=== PATIENT | female | born 1975 | race Hispanic/Latino ===

== ENCOUNTER 2016-06-25 13:14 | Emergency (ER) | payer SELFPAY ==
[~2016-06-25] VITALS: Ht 152.4 cm; Wt 100.0 kg
[~2016-06-25 13:14] MED LIST: ADVIL200 MG PO; LORTAB 10 OR
[2016-06-25] MEDS ORDERED: LORTAB 5-325 MG1 TAB PO (14:15)
[2016-06-25 14:29] VITALS: BP 137/44
== END 2016-06-25 14:29 | disposition home or self-care (01) | DRG 607 ==
LOC: ED 13:14
DX: L25.3 Unspecified contact dermatitis due to other chemical products (principal)

== ENCOUNTER 2019-08-07 15:53 | Emergency (ER) | payer SELFPAY ==
[~2019-08-07] VITALS: Ht 152.4 cm; Wt 92.7 kg
[~2019-08-07 15:53] MED LIST changes: +FLEXERIL5 M1 PO; +LORTAB 5-325 MG1 TAB PO; +PERCOGESI1 PO
[2019-08-07 16:46] LABS: HEMATOCRIT 32.9 % (37.0-47.0); HEMOGLOBIN 9.5 g/dl (12.0-16.0); IMMATURE GRANULOCYTES 0.4 % (0.0-5.0); MEAN CORPUSCULAR HGB CONC 28.9 g/dL CAL (32.0-36.0); NEUT# 2.87 thou/uL (2.00-7.15); RED BLOOD COUNT 4.75 mill/uL (4.20-5.60); RED CELL DISTRI WIDTH 18.7 % (11.5-15.5)
[2019-08-07 17:00] LABS: MEAN CELL VOLUME 69.3 fL CALC (80.0-100.0)
[2019-08-07 17:14] LABS: ALBUMIN 4.1 g/dL (3.2-5.0); ALKALINE PHOSPHATASE 153 u/l (38-126); ANION GAP 13 (6-22 (CALC)); BILIRUBIN, TOTAL 0.3 mg/dL (0.0-1.4); BUN 7 mg/dL (7-17); BUN/CREATININE RATIO 11 (12-20 (CALC)); CARBON DIOXIDE 23 mmol/l (22-30); CHLORIDE 101 mmol/l (95-108); CREATININE 0.6 mg/dL (0.5-1.0); GFR > 60 ML/MIN (>=60 (CALC)); GFR FOR AFR.AMER. > 60 ML/MIN (>=60 (CALC)); LIPASE 87 u/l (23-300); POTASSIUM 3.3 mmol/l (3.5-5.1); SGOT/AST 85 u/l (14-36); SODIUM 134 mmol/l (137-146)
[2019-08-07 17:18] LABS: HCG SERUM/URINE (NEG/POS) NEGATIVE (NEGATIVE)
[2019-08-07 18:17] LABS: C-REACTIVE PROTEIN 3.8 mg/dL (0-0.9)
[2019-08-07 18:50] VITALS: BP 142/73
== END 2019-08-07 18:50 | disposition home or self-care (01) | DRG 179 ==
LOC: ED 15:53
PROVIDERS: Family Medicine
DX: U07.1 COVID-19 (principal)

== ENCOUNTER 2020-06-28 21:48 | Emergency (ER) | payer SELFPAY ==
[~2020-06-28] VITALS: Ht 152.4 cm; Wt 93.0 kg
[2020-06-28] MEDS ORDERED: METFORMIN HCL500 M2 PO (22:39)
[2020-06-28 23:00] LABS: IMMATURE GRANULOCYTES 0.4 % (0.0-5.0); MEAN CORPUSCULAR HGB CONC 32.2 g/dL CAL (32.0-36.0); NEUT# 4.14 thou/uL (2.00-7.15); RED BLOOD COUNT 4.41 mill/uL (4.20-5.60); RED CELL DISTRI WIDTH 11.9 % (11.5-15.5)
[2020-06-28 23:01] LABS: HEMATOCRIT 39.7 % (37.0-47.0); HEMOGLOBIN 12.8 g/dl (12.0-16.0)
[2020-06-28 23:06] LABS: ALBUMIN 4.3 g/dL (3.2-5.0); ALKALINE PHOSPHATASE 126 u/l (38-126); AMYLASE 61 u/l (30-110); BUN 15 mg/dL (7-17); BUN/CREATININE RATIO 21 (12-20 (CALC)); CHLORIDE 98 mmol/l (95-108); CREATININE 0.7 mg/dL (0.5-1.0); GFR > 60 ML/MIN (>=60 (CALC)); GFR FOR AFR.AMER. > 60 ML/MIN (>=60 (CALC)); LIPASE 112 u/l (23-300); POTASSIUM 3.8 mmol/l (3.5-5.1); SGOT/AST 37 u/l (14-36); SODIUM 134 mmol/l (137-146); TOTAL PROTEIN 8.4 g/dL (6.3-8.2)
[2020-06-28 23:09] LABS: ANION GAP 11 (6-22 (CALC)); BILIRUBIN, TOTAL 0.5 mg/dL (0.0-1.4); CARBON DIOXIDE 29 mmol/l (22-30)
[2020-06-29 00:54] LABS: URINE BILIRUBIN - DIPSTICK NEGATIVE (NEGATIVE); URINE COLOR YELLOW; URINE GLUCOSE - DIPSTICK >=1000 mg/dL (NEGATIVE); URINE KETONE NEGATIVE (NEGATIVE); URINE LEUK ESTERASE TRACE (NEGATIVE); URINE PH 6.5 (4.5-8.0); URINE PROTEIN - DIPSTICK TRACE mg/dL (NEG-TRACE); URINE UROBILINOGEN - DIPSTICK 0.2 E.U./dL (0.2)
[2020-06-29 01:04] LABS: URINE BLOOD DIPSTICK NEGATIVE (NEGATIVE); URINE NITRITE - DIPSTICK POSITIVE (Negative)
[2020-06-29 01:05] LABS: URINE BACTERIA MODERATE hpf; URINE EPITHELIAL CELLS MANY EPI/hpf (0-FEW); URINE MUCUS FEW hpf (NONE-FEW)
[2020-06-29] MEDS ORDERED: CIPROFLOXACN500 MG PO (01:13)
[2020-06-29 01:30] VITALS: BP 138/80
== END 2020-06-29 01:39 | disposition home or self-care (01) | DRG 445 ==
LOC: ED 21:48
PROVIDERS: Emergency Medicine
DX: K80.20 Calculus of gallbladder without cholecystitis without obstruction (principal); N39.0 Urinary tract infection, site not specified; E11.9 Type 2 diabetes mellitus without complications; Z86.16 Personal history of COVID-19; Z79.84 Long term (current) use of oral hypoglycemic drugs
CPT/HCPCS: Q9967

== ENCOUNTER 2021-09-30 21:03 | Emergency (ER) | payer SELFPAY ==
[~2021-09-30] VITALS: Ht 157.5 cm; Wt 93.0 kg
[~2021-09-30 21:03] MED LIST changes: +CIPROFLOXACN500 MG PO; +METFORMIN HCL500 M2 PO
[2021-09-30 22:43] LABS: URINE BILIRUBIN - DIPSTICK NEGATIVE (NEGATIVE); URINE BLOOD DIPSTICK TRACE-INTACT (NEGATIVE); URINE COLOR YELLOW; URINE GLUCOSE - DIPSTICK >=1000 mg/dL (NEGATIVE); URINE LEUK ESTERASE TRACE (NEGATIVE); URINE PROTEIN - DIPSTICK TRACE mg/dL (NEG-TRACE); URINE UROBILINOGEN - DIPSTICK 0.2 E.U./dL (0.2)
[2021-09-30 22:49] LABS: IMMATURE GRANULOCYTES 0.2 % (0.0-5.0); MEAN CORPUSCULAR HGB 19.9 pG CALC (26.0-32.0); MEAN CORPUSCULAR HGB CONC 28.2 g/dL CAL (32.0-36.0); NEUT# 3.42 thou/uL (2.00-7.15); RED BLOOD COUNT 4.48 mill/uL (4.20-5.60)
[2021-09-30 22:54] LABS: HEMATOCRIT 31.6 % (37.0-47.0); HEMOGLOBIN 8.9 g/dl (12.0-16.0); MEAN CELL VOLUME 70.5 fL CALC (80.0-100.0)
[2021-09-30 23:00] LABS: URINE NITRITE - DIPSTICK NEGATIVE (Negative)
[2021-09-30 23:01] LABS: URINE KETONE NEGATIVE (NEGATIVE)
[2021-09-30 23:12] LABS: ALBUMIN 4.1 g/dL (3.2-5.0); ALKALINE PHOSPHATASE 128 u/l (38-126); ANION GAP 13 (6-22 (CALC)); BUN 11 mg/dL (7-17); BUN/CREATININE RATIO 20 (12-20 (CALC)); CARBON DIOXIDE 25 mmol/l (22-30); CHLORIDE 104 mmol/l (95-108); CREATININE 0.5 mg/dL (0.5-1.0); GFR FOR AFR.AMER. > 60 ML/MIN (>=60 (CALC)); GFR OTHER RACES > 60 ML/MIN (>=60 (CALC)); POTASSIUM 4.5 mmol/l (3.5-5.1); SGOT/AST 54 u/l (14-36); SODIUM 137 mmol/l (137-146); TOTAL PROTEIN 7.4 g/dL (6.3-8.2)
[2021-09-30 23:17] LABS: BILIRUBIN, TOTAL 0.2 mg/dL (0.0-1.4)
[2021-09-30 23:31] VITALS: BP 129/59
[2021-10-01 01:01] VITALS: BP 127/64
[2021-10-01] MEDS ORDERED: METRONIDAZOLE500 MG PO (02:50)
[2021-10-01] MEDS ORDERED: MONISTAT1 VA (02:50)
[2021-10-01 02:52] VITALS: BP 127/64
== END 2021-10-01 02:57 | disposition home or self-care (01) | DRG 759 ==
LOC: ED 21:03
PROVIDERS: Emergency Medicine
DX: N76.0 Acute vaginitis (principal)
CPT/HCPCS: Q9967

== ENCOUNTER 2022-04-15 18:04 | Emergency (ER) | payer SELFPAY ==
[~2022-04-15] VITALS: Ht 157.5 cm; Wt 89.8 kg
[~2022-04-15 18:04] MED LIST changes: +METRONIDAZOLE500 MG PO; +MONISTAT1 VA
[2022-04-15 19:05] VITALS: BP 117/56
[2022-04-15 19:14] LABS: BASO% 0.5 % (0-3); EOS% 0.8 % (0-8); HEMATOCRIT 31.7 % (37.0-47.0); HEMOGLOBIN 8.9 g/dl (12.0-16.0); IMMATURE GRANULOCYTES 0.2 % (0.0-5.0); MEAN CELL VOLUME 67.9 fL CALC (80.0-100.0); MEAN CORPUSCULAR HGB 19.1 pG CALC (26.0-32.0); MEAN CORPUSCULAR HGB CONC 28.1 g/dL CAL (32.0-36.0); NEUT# 7.12 thou/uL (2.00-7.15); NEUT% 77.5 % (42-76); RED BLOOD COUNT 4.67 mill/uL (4.20-5.60); RED CELL DISTRI WIDTH 17.7 % (11.5-15.5)
[2022-04-15 19:25] LABS: HCG SERUM/URINE (NEG/POS) NEGATIVE (NEGATIVE)
[2022-04-15 19:26] LABS: ALBUMIN 4.2 g/dL (3.2-5.0); ALKALINE PHOSPHATASE 136 u/l (38-126); ANION GAP 11 (6-22 (CALC)); BUN 5 mg/dL (7-17); BUN/CREATININE RATIO 13 (12-20 (CALC)); CARBON DIOXIDE 26 mmol/l (22-30); CHLORIDE 100 mmol/l (95-108); CREATININE 0.4 mg/dL (0.5-1.0); GFR FOR AFR.AMER. > 60 ML/MIN (>=60 (CALC)); GFR OTHER RACES > 60 ML/MIN (>=60 (CALC)); POTASSIUM 4.1 mmol/l (3.5-5.1); SGOT/AST 31 u/l (14-36); SODIUM 133 mmol/l (137-146); TOTAL PROTEIN 7.8 g/dL (6.3-8.2)
[2022-04-15 19:29] LABS: BILIRUBIN, TOTAL 0.5 mg/dL (0.02-1.3)
[2022-04-15 19:31] VITALS: BP 124/60
[2022-04-15 19:48] LABS: ACT PARTIAL THROMBO TIME 22.7 SECONDS (20.0-32.5); INTERNATIONAL NORMALIZED RATIO 0.9 RATIO (0.7-1.3); PROTHROMBIN TIME 9.4 SECONDS (9.0-12.5)
[2022-04-15 20:01] VITALS: BP 126/55
[2022-04-15] MEDS ORDERED: PAXLOVID PO (20:23)
[2022-04-15 20:48] VITALS: BP 126/55
== END 2022-04-15 21:04 | disposition home or self-care (01) | DRG 179 ==
LOC: ED 18:04
PROVIDERS: Family Medicine
DX: U07.1 COVID-19 (principal); R05.9 Cough, unspecified; J02.9 Acute pharyngitis, unspecified; M79.10 Myalgia, unspecified site; R07.81 Pleurodynia; E11.9 Type 2 diabetes mellitus without complications; E78.00 Pure hypercholesterolemia, unspecified; Z28.311 Partially vaccinated for COVID-19; Z86.16 Personal history of COVID-19

== ENCOUNTER 2023-02-22 10:00 | Emergency (ER) | payer SELFPAY ==
[~2023-02-22] VITALS: Ht 157.5 cm; Wt 91.0 kg
[2023-02-22] VITALS (7 sets, daily range): BP systolic 117–154; BP diastolic 63–81
[~2023-02-22 10:00] MED LIST changes: +PAXLOVID PO
[2023-02-22] MEDS ORDERED: PAXLOVID PO ×2 (13:38→15:39)
== END 2023-02-22 13:43 | disposition home or self-care (01) | DRG 179 ==
LOC: ED 10:00
DX: U07.1 COVID-19 (principal); R51.9 Headache, unspecified; R05.9 Cough, unspecified; R52 Pain, unspecified; R50.9 Fever, unspecified; E11.9 Type 2 diabetes mellitus without complications; E78.00 Pure hypercholesterolemia, unspecified; Z86.16 Personal history of COVID-19